=== PATIENT | male | born 1955 | race Two or more races ===

== ENCOUNTER → 2018-08-01 | Day surgery (SDC) | payer OTHER ==
[~2018-08-01] MED LIST: AMLODIPINE BES2.5 MG PO; TOPROL XL25 M1 PO
== END | disposition home or self-care (01) ==
LOC: ADM 07-23 10:15 → CIR.AMB 06:39 → EDBD 10:15 → CIR.AMB 15:30
DX: D12.9 Benign neoplasm of anus and anal canal (principal); K64.4 Residual hemorrhoidal skin tags